=== PATIENT | female | born 1995 | race Two or more races ===

== ENCOUNTER 2019-05-09 01:48 | Emergency (ER) | payer SELFPAY ==
[~2019-05-09] VITALS: Ht 157.5 cm; Wt 59.0 kg
--- NOTE | 2019-05-09 01:52 | NUR ---
Came in ambulatory c/o L earache/pain. To room 2A. Seen and evaluated by Dr. Durbin.
[2019-05-09] MEDS ORDERED: DOCUSATE SODIUM 100 MG/10 ML LIQUID UDC OT ONE (02:15)
[2019-05-09] MEDS ORDERED: DOCUSATE SODIUM 100 MG/10 ML LIQUID UDC ONE (02:17)
--- NOTE | 2019-05-09 02:30 | NUR ---
irrigation of ear after administration of colace.
--- NOTE | 2019-05-09 03:25 | NUR ---
Patient discharged to home in stable conditon. Written and verbal after care instructions given. Patient verbalizes understanding of instructions. All belongings taken with patient. Patient went home with good understanding of discharge instructions. Patient ambulatory and denies any discomfort/pain/dizziness.
[2019-05-09 03:28] VITALS: BP 120/76
== END 2019-05-09 03:28 | disposition home or self-care (01) ==
LOC: ER 01:54
DX: H61.22 Impacted cerumen, left ear (principal); H92.01 Otalgia, right ear
CPT/HCPCS: A4663

== ENCOUNTER 2019-12-20 17:41 | Emergency (ER) | payer MEDICAID ==
[~2019-12-20] VITALS: Ht 157.5 cm; Wt 59.0 kg
[2019-12-20] MEDS ORDERED: HYDROCODONE/APAP 10-325 MG TABLET ONE (19:14)
[2019-12-20] MEDS ORDERED: HYDROCODONE/APAP 10-325 MG TABLET PO ONE (19:15)
[2019-12-20 19:19] LABS: *URINE HCG, QUAL NEGATIVE (NEGATIVE)
--- NOTE | 2019-12-20 19:59 | NUR ---
Patient discharged to home in stable conditon. Written and verbal after care instructions given. Patient verbalizes understanding of instructions. Pt walked out of ER in stable gait with mother who will drive pt home. Pt appears in no distress. Vital signs stable. Resp. even + unlabored.
[2019-12-20 20:00] VITALS: BP 112/76
== END 2019-12-20 20:00 | disposition home or self-care (01) ==
LOC: ER 17:46
DX: F07.81 Postconcussional syndrome (principal)
CPT/HCPCS: 70450; 84703; A4663

== ENCOUNTER 2021-04-03 20:38 | Emergency (ER) | payer MEDICAID, OTHER ==
[~2021-04-03] VITALS: Ht 160 cm; Wt 66.2 kg
--- NOTE | 2021-04-03 21:50 | NUR ---
Pt provided urine sample, sent to lab.
--- NOTE | 2021-04-03 21:57 | NUR ---
Dr. Mcgraw at bedside for MSE.
[2021-04-03 22:09] LABS: *BILIRUBIN,URIN NEGATIVE (NEGATIVE); *BLOOD, URINE 2+ (NEGATIVE); *CLARITY,URINE CLEAR (CLEAR); *COLOR,URINE YELLOW (YELLOW); *KETONES,URINE NEGATIVE (NEGATIVE); *UROBILINOGEN,URINE 0.2 E.U./dl (NORMAL); LEUKOCYTE ESTERASE ,URINE TRACE (NEGATIVE); NITRITE, URINE NEGATIVE (NEGATIVE); PH,URINE 8.5 (5.0-8.0); UGLUCOSE NEGATIVE (NEGATIVE)
[2021-04-03] MEDS ORDERED: PROCHLORPERAZINE EDISYLATE 10 MG/2 ML VIAL IV ONE (22:15)
[2021-04-03] MEDS ORDERED: IV NORMAL SALINE 1000 ML BAG IV ONE (22:15)
[2021-04-03 22:20] LABS: BACTERIA,URINE NONE SEEN /HPF (NONE SEEN); WBC,URINE 0-3 /HPF (0-3)
[2021-04-03] MEDS ORDERED: PROCHLORPERAZINE EDISYLATE 10 MG/2 ML VIAL ONE (22:25)
[2021-04-03 22:26] LABS: BASOPHILS % (AUTO) 0.4 % (0.0-2.0); EOSINOPHILS # (AUTO) 0.1 K/uL (0.0-0.7); EOSINOPHILS % (AUTO) 0.6 % (0.0-7.0); HEMATOCRIT 45.2 % (31.2-41.9); HEMOGLOBIN 15.4 g/dL (10.9-14.3); LYMPHOCYTES # (AUTO) 1.7 K/uL (20.0-40.0); LYMPHOCYTES % (AUTO) 17.5 % (20.5-51.5); MEAN CORPUSCULAR HEMOGLOBIN 27.8 uug (24.7-32.8); MEAN CORPUSCULAR HGB CONC 34 g/dL (32.3-35.6); MEAN CORPUSCULAR VOLUME 81.9 fL (75.5-95.3); MONOCYTES # (AUTO) 0.5 K/uL (2.0-10.0); MONOCYTES % (AUTO) 5.2 % (0.0-11.0); NEUTROPHILS # (AUTO) 7.2 K/uL (1.8-8.9); NEUTROPHILS % (AUTO) 76.3 % (38.5-71.5); PLATELET COUNT (AUTO) 280 K/uL (179-408); RED BLOOD CELL COUNT(AUTO) 5.52 MIL/uL (3.63-4.92); WHITE BLOOD COUNT (AUTO) 9.4 K/uL (3.8-11.8)
[2021-04-03 22:32] LABS: CARBON DIOXIDE 34 mmol/L (21-32); CHLORIDE 102 mmol/L (98-107); CREATININE 0.8 mg/dL (0.6-1.3); GLUCOSE 96 mg/dL (74-106); POTASSIUM 3.6 mmol/L (3.5-5.1); UREA NITROGEN, BLOOD 10 mg/dL (7-18)
--- NOTE | 2021-04-03 22:32 | NUR ---
Called for U/[facility] tech status arrival for patient. radiology special procedure tech states that the U/S tech is in route to the hospital.
--- NOTE | 2021-04-03 22:47 | NUR ---
Ultrasound at bedside.
[2021-04-03] MEDS ORDERED: METOCLOPRAMIDE HCL 10 MG/2 ML VIAL IV ONE (23:00)
[2021-04-03] MEDS ORDERED: KETOROLAC TROMETHAMINE 30 MG INJ IVP ONE (23:00)
[2021-04-03] MEDS ORDERED: diphenhydrAMINE 50 MG/1 ML VIAL IV ONE (23:00)
[2021-04-03] MEDS ORDERED: diphenhydrAMINE 50 MG/1 ML VIAL ONE (23:19)
[2021-04-03] MEDS ORDERED: KETOROLAC TROMETHAMINE 30 MG INJ ONE (23:19)
[2021-04-03] MEDS ORDERED: METOCLOPRAMIDE HCL 10 MG/2 ML VIAL ONE (23:19)
--- NOTE | 2021-04-03 23:43 | NUR ---
Patient states great relief in her pain. Stating she feels no pain; 0/10 pain.
[2021-04-04] MEDS ORDERED: SUMA100T16 PO (00:02)
[2021-04-04] MEDS ORDERED: PROC10TA29 PO (00:03)
[2021-04-04 00:15] VITALS: BP 122/82
--- NOTE | 2021-04-04 00:15 | NUR ---
Patient discharged to home in stable condition. Written and verbal after care instructions given. Patient verbalizes understanding of instructions. Stressed follow up or return to ER for worsening s/s. Patient ambulates with steady gait, V/S stable, received paper Rx, copies of U/S;labs, and left with all personal belongings. Addendum: 04/04/21 at 0020 by LUIS Saline lock removed.
== END 2021-04-04 00:15 | disposition home or self-care (01) ==
LOC: ER 20:38
DX: G43.909 Migraine, unspecified, not intractable, without status migrainosus (principal); R10.30 Lower abdominal pain, unspecified; N91.0 Primary amenorrhea
CPT/HCPCS: 36415; 76856; 80048; 81001; 84702; 85025; 96361; 96374; 96375; 99284; J0780; J1200; J1885; J2765; A4663; J7030

== ENCOUNTER 2021-05-20 19:11 | Emergency (ER) | payer OTHER ==
[~2021-05-20] VITALS: Ht 160 cm; Wt 65.8 kg
[~2021-05-20 19:11] MED LIST: PROC10TA29 PO; SUMA100T16 PO
--- NOTE | 2021-05-20 19:30 | NUR ---
Pt. co vaginal bleeding for last 3 weeks. Pt saw ob 10 days go and was given provera for bleeding. Pt came today because she has been feeling fatigued. Vss. Will continue to follow up.
[2021-05-20 20:06] LABS: *URINE HCG, QUAL NEGATIVE (NEGATIVE)
--- NOTE | 2021-05-20 20:06 | NUR ---
Dr. Thomson at bedside for mse.
--- NOTE | 2021-05-20 20:40 | NUR ---
lab at bedside
[2021-05-20 20:50] LABS: HEMATOCRIT 43.5 % (31.2-41.9); MEAN CORPUSCULAR HEMOGLOBIN 27.6 uug (24.7-32.8); PLATELET COUNT (AUTO) 283 K/uL (179-408)
--- NOTE | 2021-05-20 21:10 | NUR ---
Patient discharged to home in stable condition. Written and verbal after care instructions given. Patient verbalizes understanding of instructions. Stressed follow up or return to ER for worsening s/s. Vss. All belongigs with pt.
[2021-05-20 22:23] VITALS: BP 118/66
== END 2021-05-20 21:10 | disposition home or self-care (01) ==
LOC: ER 19:12
DX: N93.9 Abnormal uterine and vaginal bleeding, unspecified (principal)
CPT/HCPCS: 36415; 84703; 85025; 85730; A4663